=== PATIENT | male | born 1950 | race Caucasian/White ===

== ENCOUNTER → 2019-10-10 08:56 | Outpatient (CLI) | payer MEDICARE ==
--- NOTE | ~2019-10-10 | ST ---
PATIENT:BRONWYN KO MEDICAL RECORD: [id number] SEX: M LOCATION:[facility] ORDER #: ADMISSION DATE: 10/10/19 AGE OF PATIENT: 68 REFERRING PHYSICIAN: INTERPRETING PHYSICIAN: EFRA FRANCO MD DATE OF SERVICE: 10/10/2019 PROCEDURE: Nuclear stress test. INDICATION: Angina, shortness of breath. He was exercised on standard Lexiscan protocol with 33 mCi of sestamibi injected at peak stress, 11 mCi used previously for rest images. FINDINGS: Gated SPECT reveals preserved ejection fraction at 68% with good wall motioning and thickening and brightening throughout all segments. SPECT imaging Cardiolite was used as myocardial perfusion agent. There are definite reversible changes inferiorly and apically. This includes the basal, mid, apical, inferior segments as well as the apex itself. The degree of reversibility is moderate. The amount of myocardial involved is moderate. OVERALL IMPRESSION: This is intermediate risk abnormal nuclear stress test, relatively large area of reversible ischemia inferiorly and apically suggestive of hemodynamically significant coronary artery disease. TRANSINT:[id number] Voice Confirmation ID: [id number] DOCUMENT ID: [id number] EFRA FRANCO MD CC: KATIE ADLER MD [id number] DICTATION DATE: 10/10/19 1643 HOLTER SCANNING TECHNICIAN: 10/11/19 0705 DEP CLI 10/10/19 [facility] [address] [place] [address]
== END | disposition home or self-care (01) ==
LOC: D.HCCARDIO 08:56
PROVIDERS: ATTEND Internal Medicine Interventional Cardiology
DX: I20.9 Angina pectoris, unspecified (principal)